=== PATIENT | male | born 1990 | race Caucasian/White ===

== ENCOUNTER 2020-03-14 10:28 | Observation (INO) ==
[2020-03-14 11:07] LABS: Basophils # (auto) 0.03 K/uL (0-0.2); Basophils % (auto) 0.2 %; Eosinophils # (auto) 0.16 K/uL (0-0.5); Eosinophils % (auto) 1.1 %; Hematocrit (blood only) 45.2 % (42-52); Hemoglobin 15.5 g/dL (14.0-18.0); Immature Granulocytes # (auto) 0.03 K/uL (0.00-0.02); Immature Granulocytes % (auto) 0.2 %; Lymphocytes # (auto) 0.99 K/uL (1.2-3.4); Lymphocytes % (auto) 6.5 %; Mean Corpuscular Hemoglobin 29.2 pg (25-34); Mean Corpuscular Hgb Conc 34.3 g/dL (32-36); Mean Corpuscular Volume 85.3 fL (80-100); Mean Platelet Volume 11.5 fL (7.4-10.4); Monocytes # (auto) 0.79 K/uL (0.11-0.59); Monocytes % (auto) 5.2 %; Neutrophils # (auto) 13.12 K/uL (1.4-6.5); Neutrophils % (auto) 86.8 %; Platelet Count 187 K/uL (130-400); RDW Coefficient of Variation 12.8 % (11.5-14.5); RDW Standard Deviation 39.6 fL (36.4-46.3); White Blood Count 15.12 K/uL (4.8-10.8)
[2020-03-14] MEDS ORDERED: MoRPHine SULFATE 4 MG/ML 1 ML CARP\\VIAL IV STA ×2 (11:17→12:31)
[2020-03-14] MEDS ORDERED: ONDANSETRON INJ 2 MG/ML 2 ML VIAL IV STA (11:17)
--- NOTE | 2020-03-14 11:22 | Emergency Department Note ---
History of Present Illness General Chief complaint: Abdominal Pain Stated complaint: ABD PAIN/VOMITING Time Seen by Provider: 03/14/20 11:01 History of Present Illness Maximum Pain Intensity: 8 This patient is a pleasant 29-year-old male who presents ambulatory to the emergency department for evaluation of a sharp, stabbing, constant abdominal pain in the lower abdomen that started at approximately 4 AM this morning. The patient also reports nausea and had one episode of bilious vomiting this morning. Bowel movements have been unchanged. His last bowel movement was "earlier this week and normal." He denies any fever. No hematuria reported. Trying to urinate this morning made the pain worse. He has not taken anything [id number] for his symptoms. Home Medications Medication Instructions Recorded Confirmed Type buprenorphine-naloxone 2 tab SUBLINGUAL BID 03/14/20 03/14/20 History Allergies Allergy/AdvReac Type Severity Reaction Status Date / Time No Known Allergies Allergy Verified 03/14/20 12:23 Past Med/Surg History Medical History (Updated 03/14/20 @ 19:43 by Apryl Rankin PA-C) No significant past medical history Social History Smoking Status: Never smoker Hx Alcohol Use: No Hx Substance Use: Yes Substance Use Type Other:: Patient is on suboxone Preferred Language: Yi Communication Ability: Effective Station Examiner Required: No Beliefs That Will Affect Care: None Current Living Situation: Significant Other Other Information That Helps Us Care for You: No Feels Safe at Home: Yes Safety Concerns: Feels Safe At This Time Assistive Devices: None Review of Systems A total of 10 systems reviewed and were otherwise negative Physical Exam Vital Signs Vital Signs - 24 hr 03/14/20 10:44 03/14/20 10:59 03/14/20 12:28 Temperature 37.8 C H 36.7 C Temperature Source Temporal Artery Scan Oral Pulse Rate 88 Pulse Rate [Left Finger] 88 Respiratory Rate 16 20 Respiratory Effort / Characteristics Non-Labored Respiratory Depth Normal Blood Pressure 129/83 Blood Pressure [Left Arm] 136/78 Blood Pressure Mean 98 Blood Pressure Mean [Left Arm] 97 Pulse Oximetry 97 98 Sepsis Recent Fever Within 48 Hours No Sepsis New/Unexplained Change in Mental Status N/A Sepsis Action Taken by Nursing No Action Required 03/14/20 14:45 03/14/20 16:16 Temperature Temperature Source Pulse Rate Pulse Rate [Left Finger] 77 76 Respiratory Rate 18 18 Respiratory Effort / Characteristics Respiratory Depth Blood Pressure Blood Pressure [Left Arm] 134/76 115/76 Blood Pressure Mean Blood Pressure Mean [Left Arm] 95 89 Pulse Oximetry 98 98 Sepsis Recent Fever Within 48 Hours Sepsis New/Unexplained Change in Mental Status Sepsis Action Taken by Nursing Constitutional WD/WN, vitals as above Eyes EOM intact bilaterally ENMT external ear and nose normal, oropharynx normal Neck trachea midline Respiratory normal respiratory effort, lungs clear to auscultation Cardiovascular RRR, no murmur, no edema Gastrointestinal (Abdomen) Tenderness palpation in the right lower quadrant without any guarding or rebound tenderness. Bowel sounds present, but hypoactive. Musculoskeletal no cyanosis or clubbing, extremities motor strength 5/5 Skin no rashes, warm and dry Neurologic Alert and oriented x3. No focal motor deficits. Psychiatric Acting appropriately Course Course Patient was seen and examined Vital signs including blood pressure were reviewed medications list was verified with patient Labs were obtained, and a saline lock was established The patient was medicated. Imaging was ordered and reviewed. Upon reevaluation, the patient was still in pain. He was ordered an additional round of morphine. We discussed his results. He voiced understanding. The case was discussed with my supervising physician in addition to general surgery. General surgery agreed to evaluate the patient for likely surgical management. He was ordered 1 dose of antibiotics IV. The patient remained stable in the emergency department. Consultations Consultation #1: Munira Diana PA-C Administered Medications Lactated Ringer's (Lr) 1,000 mls @ 80 mls/hr IV .[id number] [facility] Stop: 04/13/20 18:53 Last Admin: 03/14/20 18:54 Dose: 80 mls/hr Documented by: [id number] Acetaminophen (Ofirmev) 1,000 mg in 100 mls @ 400 mls/hr IV Q8H [facility] Stop: 03/17/20 19:59 Last Admin: 03/14/20 20:24 Dose: 400 mls/hr Documented by: [id number] Oxycodone HCl (Oxycodone Hcl Ir 5 Mg Tab (Immediate Release)) 5 mg PO Q4H PRN PRN Reason: MODERATE Pain (4,5,6) & Pre PT Stop: 03/28/20 18:53 Last Admin: 03/14/20 20:26 Dose: 5 mg Documented by: [id number] Discontinued Medications Bupivacaine HCl/Epinephrine Bitart (Bupivacaine/Epinephrine 0.5% Mpf 1:200,000 30 Ml Vial) Confirm Administered Dose 30 ml .ROUTE .STK-MED ONE Stop: 03/14/20 15:48 Last Admin: 03/14/20 17:30 Dose: 30 ml Documented by: [id number] Sodium Chloride (Nss 1000ml) 1,000 mls @ 999 mls/hr IV .Q1H1M ONE Stop: 03/14/20 12:39 Last Infusion: 03/14/20 12:00 Dose: 0 mls/hr Documented by: [id number] Admin: 03/14/20 11:00 Dose: 999 mls/hr Documented by: [id number] Cefoxitin Sodium (Mefoxin) 2,000 mg in 60 mls @ 100 mls/hr IV NOW STA Stop: 03/14/20 15:34 Last Admin: 03/14/20 15:15 Dose: 100 mls/hr Documented by: [id number] Ioversol (Ioversol 100ml) 93 ml IV ONCE ONE Stop: 03/14/20 14:12 Last Admin: 03/14/20 14:12 Dose: 93 ml Documented by: [id number] Morphine Sulfate (Morphine Sulfate 4 Mg/Ml 1 Ml Carp\\Vial) 4 mg IV NOW STA Stop: 03/14/20 11:18 Last Admin: 03/14/20 11:35 Dose: 4 mg Documented by: [id number] Morphine Sulfate (Morphine Sulfate 4 Mg/Ml 1 Ml Carp\\Vial) 4 mg IV NOW STA Stop: 03/14/20 12:32 Last Admin: 03/14/20 15:14 Dose: Not Given Documented by: [id number] Morphine Sulfate (Morphine Sulfate 4 Mg/Ml 1 Ml Carp\\Vial) Confirm Administered Dose 4 mg .ROUTE .STK-MED ONE Stop: 03/14/20 15:12 Last Admin: 03/14/20 15:12 Dose: Not Given Documented by: [id number] Ondansetron HCl (Ondansetron Inj 2 Mg/Ml 2 Ml Vial) 4 mg IV NOW STA Stop: 03/14/20 11:18 Last Admin: 03/14/20 11:35 Dose: 4 mg Documented by: [id number] Medical Decision Making Medical Records Attestation: I reviewed the patient's medical records. Home Medications Current Medication List: was personally reviewed by me Laboratory Data Attestation: I reviewed the patient's lab results. Result diagrams: 03/14/20 10:55 03/14/20 10:55 Lab Results 03/14/20 03/14/20 03/14/20 Range/Units 10:55 10:55 12:09 WBC 15.12 H (4.8-10.8) K/uL RBC 5.30 (4.7-6.1) M/uL Hgb 15.5 (14.0-18.0) g/dL Hct 45.2 (42-52) % MCV 85.3 (80-100) fL MCH 29.2 (25-34) pg MCHC 34.3 (32-36) g/dL RDW Std Deviation 39.6 (36.4-46.3) fL RDW Coeff of Kay 12.8 (11.5-14.5) % Plt Count 187 (130-400) K/uL MPV 11.5 H (7.4-10.4) fL Immature Gran % (Auto) 0.2 % Neut % (Auto) 86.8 % Lymph % (Auto) 6.5 % [place] % (Auto) 5.2 % Eos % (Auto) 1.1 % Baso % (Auto) 0.2 % Neut # (Auto) 13.12 H (1.4-6.5) K/uL Lymph # (Auto) 0.99 L (1.2-3.4) K/uL [place] # (Auto) 0.79 H (0.11-0.59) K/uL Eos # (Auto) 0.16 (0-0.5) K/uL Baso # (Auto) 0.03 (0-0.2) K/uL Immature Gran # (Auto) 0.03 H (0.00-0.02) K/uL Sodium 140 (136-145) mmol/L Potassium 4.4 (3.5-5.1) mmol/L Chloride 106 (98-107) mmol/L Carbon Dioxide 30 (21-32) mmol/L Anion Gap 3.0 (3-11) BUN 9 (7-18) mg/dl Creatinine 0.87 (0.6-1.4) mg/dl Est Cr Clr Drug Dosing 112.9 ml/min Est GFR ( Amer) 135.2 Est GFR (Non-Af Amer) 116.6 BUN/Creatinine Ratio 10.8 (10-20) Glucose 98 (70-99) mg/dl Calcium 9.6 (8.5-10.1) mg/dl Total Bilirubin 0.6 (0.2-1) mg/dl AST 11 L (15-37) U/L ALT 25 (12-78) U/L Alkaline Phosphatase 78 (45-117) U/L Total Protein 6.9 (6.4-8.2) gm/dl Albumin 4.4 (3.4-5.0) gm/dl Globulin 2.5 (2.5-4.0) gm/dl Albumin/Globulin Ratio 1.8 (0.9-2) Urine Color Yellow Urine Appearance Clear (Clear) Urine pH 8.5 H (4.5-7.5) Ur Specific [place] 1.012 (1.000-1.030) Urine Protein Negative (Negative) Urine Glucose (UA) Negative (Negative) Urine Ketones Negative (Negative) Urine Blood Negative (Negative) Urine Nitrite Negative (Negative) Urine Bilirubin Negative (Negative) Urine Urobilinogen Negative (Negative) Ur Leukocyte Esterase Negative (Negative) COVID-19 Eval Order SARS-CoV-2, RNA, NAAT (NEGATIVE) 03/14/20 03/14/20 03/14/20 Range/Units 15:15 15:41 15:41 WBC (4.8-10.8) K/uL RBC (4.7-6.1) M/uL Hgb (14.0-18.0) g/dL Hct (42-52) % MCV (80-100) fL MCH (25-34) pg MCHC (32-36) g/dL RDW Std Deviation (36.4-46.3) fL RDW Coeff of Kay (11.5-14.5) % Plt Count (130-400) K/uL MPV (7.4-10.4) fL Immature Gran % (Auto) % Neut % (Auto) % Lymph % (Auto) % [place] % (Auto) % Eos % (Auto) % Baso % (Auto) % Neut # (Auto) (1.4-6.5) K/uL Lymph # (Auto) (1.2-3.4) K/uL [place] # (Auto) (0.11-0.59) K/uL Eos # (Auto) (0-0.5) K/uL Baso # (Auto) (0-0.2) K/uL Immature Gran # (Auto) (0.00-0.02) K/uL Sodium (136-145) mmol/L Potassium (3.5-5.1) mmol/L Chloride (98-107) mmol/L Carbon Dioxide (21-32) mmol/L Anion Gap (3-11) BUN (7-18) mg/dl Creatinine (0.6-1.4) mg/dl Est Cr Clr Drug Dosing ml/min Est GFR ( Amer) Est GFR (Non-Af Amer) BUN/Creatinine Ratio (10-20) Glucose (70-99) mg/dl Calcium (8.5-10.1) mg/dl Total Bilirubin (0.2-1) mg/dl AST (15-37) U/L ALT (12-78) U/L Alkaline Phosphatase (45-117) U/L Total Protein (6.4-8.2) gm/dl Albumin (3.4-5.0) gm/dl Globulin (2.5-4.0) gm/dl Albumin/Globulin Ratio (0.9-2) Urine Color Urine Appearance (Clear) Urine pH (4.5-7.5) Ur Specific [place] (1.000-1.030) Urine Protein (Negative) Urine Glucose (UA) (Negative) Urine Ketones (Negative) Urine Blood (Negative) Urine Nitrite (Negative) Urine Bilirubin (Negative) Urine Urobilinogen (Negative) Ur Leukocyte Esterase (Negative) COVID-19 Eval Order Cancelled Covid19 [facility]Now [facility] SARS-CoV-2, RNA, NAAT NEGATIVE (NEGATIVE) Imaging Data Attestation: I personally reviewed and interpreted this imaging study as follows: Radiologist's Impression: CT abdomen and pelvis with IV and oral contrast IMPRESSION: 1. Findings consistent with early acute appendicitis. No free air or abscess. 2. 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 ACT 112: Negative or not required by law. Electronically signed by: Dustin Barrera M.D. 03/14/2020 2:23 PM Dictated: 03/14/20 [id number] Transcribed: 03/14/201418 [facility] Narrative Differential diagnosis: Ureteral stone, pyelonephritis, appendicitis, gastroe nteritis, musculoskeletal pain, bowel obstruction, among others were considered This patient is a pleasant 29-year-old male who presents emergency department complaining of right lower abdominal pain that started acutely last evening. On exam, he was nontoxic in appearance. He was not febrile. He was tender in the right lower quadrant. A work-up was performed. There is leukocytosis noted. I maging was performed and consistent with acute appendicitis. General surgery was consulted. They recommended IV antibiotics and likely surgical intervention. This was discussed with patient. He was in agreement. He remained stable in the emergency department. Impression & Plan Acute appendicitis Discharge Plan Visit Data Chief Complaint: Abdominal Pain Stated Complaint: ABD PAIN/VOMITING ED Provider: Asaf Reece ED Midlevel Provider: Apryl Rankin Discharge Problem: Acute appendicitis Patient Disposition: Admitted As Inpatient Discharge Instructions Interventions: ED Discharge Assessment Last Done: 03/14/20 16:18
[2020-03-14 11:28] LABS: Albumin Level 4.4 gm/dl (3.4-5.0); BUN Creatinine Ratio 10.8 (10-20); Calcium 9.6 mg/dl (8.5-10.1); Creatinine Clr Calc Pharmacy 112.9 ml/min; Est GFR (African American) 135.2; Est GFR (Non-African American) 116.6; Potassium 4.4 mmol/L (3.5-5.1)
[2020-03-14 11:31] LABS: Albumin Globulin Ratio 1.8 (0.9-2); Bilirubin,Total 0.6 mg/dl (0.2-1); Globulin 2.5 gm/dl (2.5-4.0); Total Protein 6.9 gm/dl (6.4-8.2)
[2020-03-14] MEDS ORDERED: SODIUM CHLORIDE 0.9% 1000ML 1,000 ML IV ONE (11:39)
[2020-03-14 12:16] LABS: Appearance Urine Clear (Clear); Bilirubin Urine Negative (Negative); Blood Urine Negative (Negative); Color Urine Yellow; Glucose Urine UA Negative (Negative); Ketones Urine Negative (Negative); Leukocyte Esterase Urine Negative (Negative); Nitrite Urine Negative (Negative); Protein Urine Negative (Negative); Specific Gravity Urine 1.012 (1.000-1.030); Urobilinogen Urine Negative (Negative); pH Urine 8.5 (4.5-7.5)
[2020-03-14] MEDS ORDERED: IOVERSOL 100ml IV ONE (14:11)
--- NOTE | 2020-03-14 14:25 | CT Scan Report ---
CT OF THE ABDOMEN AND PELVIS WITH CONTRAST CLINICAL HISTORY: Right lower abdominal pain. COMPARISON STUDY: None. TECHNIQUE: Following IV administration of 93 mL of Optiray-320, axial images of the abdomen and pelvi s were obtained from the lung bases to the proximal femurs. Images were reviewed in the axial, sagitt al, and coronal planes. IV contrast was administered without complication. Automated exposure contro l was utilized for the study. A dose lowering technique was utilized adhering to the principles of A BARBARA. Oral contrast was administered. CT DOSE: 381.24 mGy.cm FINDINGS: Lung bases are unremarkable. No pneumatosis, free air or portal venous gas is present. The liver, spleen, adrenal glands, left kidney and pancreas are unremarkable. Malrotation of the right ki dney is noted. This is congenital. There is no biliary or pancreatic ductal dilatation. There is no e vidence for a bowel obstruction. The appendix is mildly dilated and fluid filled with wall thickening . The appendix measures 9 mm in caliber. There is mild periappendiceal infiltration. No free air or a bscess is present. No acute fracture or suspicious lesion is identified within visualized skeletal st ructures. Major vasculature is patent. IMPRESSION: 1. Findings consistent with early acute appendicitis. No free air or abscess. 2. 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 ACT 112: Negative or not required by law. Electronically signed by: Dustin Barrera M.D. 03/14/2020 2:23 PM
[2020-03-14] MEDS ORDERED: cefOXitin 2,000 MG/60 ML BAG IV STA (14:59)
[2020-03-14] MEDS ORDERED: MoRPHine SULFATE 4 MG/ML 1 ML CARP\\VIAL ONE (15:11)
--- NOTE | 2020-03-14 15:33 | History & Physical Report ---
Date of Service March 14, 2020 Assessment & Plan (1) Acute appendicitis: This is a 29y M with a PMH of opioid abuse on suboxone who presents to the [facility] ED on 03/14/20 with complaints of abdominal pain, particularly in the right lower quadrant. Pain is associated with nausea/vomiting. Workup in the ED revealed a WBC of [address] a/p performed showing findings consistent with acute appendicitis, no perforation or abscess noted. Patient had a low grade temp of 37.8C in the ER, other vital signs are stable. On examination patient is acutely tender to palpation in the RLQ. Based on imaging, labs, and examination we will proceed to take patient to the OR for a laparoscopic appendectomy. Keep patient NPO with IVF and pre-op abx to be given. Covid testing has been ordered. Dr. Jeffers will be by to obtain surgical consent. as above. discussed options/risks ( bleeding/infection/injury to another organ, dvt/pe/mi/cva etc....). questions answered. will proceed with lap appy karen. pt agreeable. History of Present Illness Primary Care Provider: Ritesh Mandujano This is a 29y M with a PMH of opioid abuse on suboxone who presents to the [facility] ED on 03/14/20 with complaints of abdominal pain. Patient reports his abdominal pain started early this AM around 4am. The pains felt sharp, rating it a 10/10 in severity, and located in the RLQ. Patient thought maybe it was gas pains to he took some gas-ex and tried to go back to sleep. He woke up around around 7am with ongoing pain that was made worse when he tried to walk. He did develop nausea along with bilious emesis prompting him to come into the ER for further evaluation. In the ER patient's WBC [address] a/p was obtained that revealed findings consistent with early acute appendicitis. Patient denies any fevers/chills, cp/sob, diarrhea or constipation. He has no prior abdominal surgical history. Last meal was yesterday evening. Allergies Allergy/AdvReac Type Severity Reaction Status Date / Time No Known Allergies Allergy Verified 03/14/20 12:23 Home Medications Medication Instructions Recorded Confirmed Type buprenorphine-naloxone 2 tab SUBLINGUAL BID 03/14/20 03/14/20 History Past Med/Surg History Medical History (Updated 03/14/20 @ 15:40 by Munira Calixto PA-C) No significant past medical history Social History Smoking Status: Never smoker Feels Safe at Home: Yes Review of Systems Constitutional: no fever and no chills Respiratory: no dyspnea Cardiovascular: no chest pain Gastrointestinal: + abdominal pain (rlq), + nausea and + vomiting; no change in bowel habits Physical Exam Physical Exam: awake/alert Constitutional: well developed and well nourished Respiratory: normal respiratory effort Gastrointestinal (Abdomen): Inspection/Auscultation: + Kehr's sign positive Percussion/Palpation: + abdomen tender (ttp rlq), + guarding (guarding when p alpated in rlq) and abdomen soft Results & Data Results & Data ([facility]) Vital Signs (Past 12 Hours) Vital Signs Temp Pulse Pulse Resp BP BP Pulse Ox 03/14/20 14:45 77 18 134/76 98 03/14/20 12:28 88 20 136/78 98 03/14/20 10:59 36.7 C 03/14/20 10:44 37.8 C H 88 16 129/83 97 T OF THE ABDOMEN AND PELVIS WITH CONTRAST CLINICAL HISTORY: Right lower abdominal pain. COMPARISON STUDY: None. TECHNIQUE: Following IV administration of 93 mL of Optiray-320, axial images of the abdomen and pelvis were obtained from the lung bases to the proximal femurs. Images were reviewed in the axial, sagittal, and coronal planes. IV contrast was administered without complication. Automated exposure control was utilized for the study. A dose lowering technique was utilized adhering to the principles of ALARA. Oral contrast was administered. CT DOSE: 381.24 mGy.cm FINDINGS: Lung bases are unremarkable. No pneumatosis, free air or portal venous gas is present. The liver, spleen, adrenal glands, left kidney and pancreas are unremarkable. Malrotation of the right kidney is noted. This is congenital. There is no biliary or pancreatic ductal dilatation. There is no evidence for a bowel obstruction. The appendix is mildly dilated and fluid filled with wall t hickening. The appendix measures 9 mm in caliber. There is mild periappendiceal infiltration. No free air or abscess is present. No acute fracture or suspicious lesion is identified within visualized skeletal structures. Major vasculature is patent. IMPRESSION: 1. Findings consistent with early acute appendicitis. No free air or abscess. 2. 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 ACT 112: Negative or not required by law. Electronically signed by: Dustin Barrera M.D. 03/14/2020 2:23 PM PG Care Time/CCT Total # of Minutes Spent Total Time Spent with Patient: Total time spent is greater than 50% in coordination of care (as documented) at patient's floor/unit and/or counseling patient: Coding Level of Care Code 87358 Initial Inpt Care Lvl 1 Diagnoses Acute appendicitis K35.80
[2020-03-14] MEDS ORDERED: BUPIVACAINE/EPINEPHRINE 0.5% MPF 1:200,000 30 ML VIAL ONE (15:47)
[2020-03-14] MEDS ORDERED: ONDANSETRON INJ 2 MG/ML 2 ML VIAL ONE (15:54)
[2020-03-14] MEDS ORDERED: fentaNYL citrate 100 MCG/2 ML VIAL ONE ×2 (15:54→17:00)
[2020-03-14] MEDS ORDERED: MIDAZOLAM HCL 1 MG/ML 2ML VIAL ONE (15:54)
[2020-03-14] MEDS ORDERED: DEXAMETHASONE SOD INJ 4 MG/ML VIAL ONE (15:54)
[2020-03-14] MEDS ORDERED: LIDOCAINE HCL 2% 2 ML VIAL/AMP(20MG/ML) INFIL ONE (15:54)
[2020-03-14] MEDS ORDERED: PROPOFOL IV EMULSION 10 MG/ML 20 ML VIAL IV ONE (15:54)
[2020-03-14] MEDS ORDERED: KETOROLAC 30 MG/ML VIAL ONE (15:54)
--- NOTE | 2020-03-14 16:34 | Anesthesiology Consultation ---
Date of Service March 14, 2020 Assessment & Plan (1) Encounter for pre-operative examination: Chart Review Chart Review: Acceptable Risk for Surgery and Patient NOT seen in Pre Admission Testing Consults Requested none History Surgery Operation Date: 03/14/20 15:50 Proposed Procedures p Laparoscopic Appendectomy - Ko Jeffers DO Height/Weight Height: 5 ft 3 in Weight: 73.9 kg Allergies Allergy/AdvReac Type Severity Reaction Status Date / Time No Known Allergies Allergy Verified 03/14/20 12:23 Medications Home Medications Medication Instructions Recorded Confirmed Last Taken buprenorphine-naloxone 2 tab SUBLINGUAL BID 03/14/20 03/14/20 Unknown NPO Date Last Intake of Fluids: 03/14/20 Time Last Intake of Fluids: 12:45 Date Last Intake of Solids: 03/13/20 Time Last Intake of Solids: 21:00 Past Medical History Medical History (Updated 03/14/20 @ 16:34 by Zari Patel MD) No significant past medical history Social History Smoking Status: Never smoker Physical Exam Vital Signs Last Vital Signs Temp 36.7 C 03/14/20 10:59 Pulse 76 03/14/20 16:16 Resp 18 03/14/20 16:16 BP 115/76 03/14/20 16:16 Pulse Ox 98 03/14/20 16:16 Testing Laboratory Results 03/14/20 10:55 03/14/20 10:55 Urine Color Yellow 03/14/20 12:09 Urine Appearance Clear (Clear) 03/14/20 12:09 Urine pH 8.5 (4.5-7.5) H 03/14/20 12:09 Ur Specific [place] 1.012 (1.000-1.030) 03/14/20 12:09 Urine Protein Negative (Negative) 03/14/20 12:09 Urine Glucose (UA) Negative (Negative) 03/14/20 12:09 Urine Ketones Negative (Negative) 03/14/20 12:09 Urine Nitrite Negative (Negative) 03/14/20 12:09 Ur Leukocyte Esterase Negative (Negative) 03/14/20 12:09
[2020-03-14] MEDS ORDERED: HYDROmorphone INJ 1 MG/ML SYRINGE IV PRN (17:05)
[2020-03-14] MEDS ORDERED: ATROPINE SULFATE 0.1 MG/ML 10ML SYR IV PRN (17:05)
[2020-03-14] MEDS ORDERED: PROMETHAZINE HCL 12.5 MG in SODIUM CHLORIDE 0.9% 50 ML IV PRN (17:05)
[2020-03-14] MEDS ORDERED: ONDANSETRON INJ 2 MG/ML 2 ML VIAL IV PRN ×2 (17:05→18:54)
[2020-03-14] MEDS ORDERED: fentaNYL citrate 100 MCG/2 ML VIAL IV PRN (17:05)
[2020-03-14] MEDS ORDERED: ePHEDrine sulfate 50 MG/ML AMP IV PRN (17:05)
[2020-03-14] MEDS ORDERED: HYDROmorphone INJ 2 MG/ML SYR/VIAL ONE (17:07)
[2020-03-14] MEDS ORDERED: NEOSTIGMINE METHYLSULFATE 5 MG/5 ML SYR ONE (17:16)
[2020-03-14] MEDS ORDERED: GLYCOPYRROLATE 0.2 MG/ML VIAL ONE (17:16)
--- NOTE | 2020-03-14 17:33 | Operative Report ---
PG Post Operative Report Pre & Post Diagnosis Operation Date: 03/14/20 15:50 Pre-Op Diagnosis: Acute Appendicitis Post-Op Diagnosis: Acute Appendicitis I identified the patient and participated in the time-out.: Yes Procedure Operation Date: 03/14/20 15:50 Actual Procedures p Laparoscopic Appendectomy - Ko Jeffers DO Surgeon Ko Jeffers DO Order Takers Supervisor tom Calixto Estimated Blood Loss 10 Findings Consistent with Post-Op Diagnosis Specimens appendix Description of Procedure After informed consent was obtained the patient was taken to the operating room and placed in supine position. After successful intubation a Paniagua catheter was placed and the left arm was tucked. A P[place] catheter was inserted sterilely. I began by making a periumbilical incision with an 11 blade scalpel and carried this down through the soft tissue using electrocautery. The anterior rectus fascia was opened using electrocautery and 2 #0 Vicryl stay sutures were placed. The peritoneum was elevated using hemostats and incised under direct vision using a Metzenbaum scissor. A finger sweep was performed. A 12 mm Heck troc ar was placed and the abdomen was insufflated to 18 mmHg. A laparoscope was inserted and the abdomen was examined in 360. A suprapubic 5 mm port and a left lower quadrant 12 mm port were placed under direct vision. The patient was air planed to the left as well as placed in a slight Trendelenburg position. We began by looking in the right lower quadrant. We were able to readily identify the appendix and it was grossly inflamed. It had not perforated. There is a small amount of purulent fluid in the right lower quadrant and the pelvis. We immediately irrigated and suctioned this out. I was able to use primarily blunt dissection to pull the appendix away from the right lower quadrant sidewall. I was then able to use a JANETTE brown cartridge stapler to transect both the mesentery of the appendix as well as the appendix itself at its base with the cecum. It was then placed into an Endo Catch bag and removed from the camera port site. There was a small bleeding point on the staple line which I used a clip patient support partner to control. We thoroughly irrigated the right lower quadrant as well as the pelvis. There was adequate hemostasis. I ran the small bowel backwards from the terminal ileum for about 6 feet all of which was normal. All the peritoneal surfaces were normal. Small/ large bowel, liver, stomach etc. all appeared grossly normal. We did a final irrigation and then removed all the trochars and desufflated the abdomen. The fascia of the camera port as well as the left lower quadrant were closed using 0 Vicryl in [id number] fashion. Wounds were all irrigated and closed using 4-0 Monocryl. Marcaine was injected around them for postoperative analgesia and skin glue used as a dressing. The patient was awakened extubated and transferred to recovery in stable condition. My physician's it assistant was present through the entire case. She assisted with prepping the patient and helped with exposure for port placement, helped run the camera and helped with fascial/wound closure at the end of the procedure as well as dressing placement. I attest to the content of the Intraoperative Record and any orders documented therein. Any exceptions are noted below. I attest to the content of the Intraoperative Record and any orders documented therein. Any exceptions are noted below.
[2020-03-14] MEDS: LACTATED RINGER'S 1,000 ML IV SCH (18:54)
[2020-03-14] MEDS ORDERED: oxyCODONE HCL IR 5 MG TAB (IMMEDIATE RELEASE) PO PRN (18:54)
--- NOTE | 2020-03-14 18:59 | Anesthesiology Progress Note ---
Date of Service March 14, 2020 Anesthesia Post Procedure Vital Signs Vital Signs: Temp Pulse Pulse Pulse Resp BP BP 03/14/20 18:30 37.5 C 85 18 137/88 03/14/20 18:20 37.4 C 94 H 15 147/96 H 03/14/20 18:10 85 16 140/97 03/14/20 18:00 37.2 C 76 15 151/99 H 03/14/20 17:51 37.2 C 91 H 16 147/91 H 03/14/20 16:16 76 18 115/76 03/14/20 14:45 77 18 134/76 03/14/20 12:28 88 20 136/78 03/14/20 10:59 36.7 C 03/14/20 10:44 37.8 C H 88 16 129/83 Pulse Ox 03/14/20 18:30 93 03/14/20 18:20 93 03/14/20 18:10 94 03/14/20 18:00 100 03/14/20 17:51 100 03/14/20 16:16 98 03/14/20 14:45 98 03/14/20 12:28 98 03/14/20 10:59 03/14/20 10:44 97 Pain Intensity Head: Pain Intensity: 4 Transfer of Care Handoff Completed per policy Notes Mental Status: alert / awake / arousable and participated in evaluation Patient Amnestic to Procedure: Yes Nausea / Vomiting: adequately controlled Pain: adequately controlled Airway Patency, RR, SpO2: stable & adequate BP & HR: stable & adequate Hydration State: stable & adequate Anesthetic Complications: no major complications apparent and Pt Satisfied with anesthetic care
[2020-03-14] MEDS: ACETAMINOPHEN 1,000 MG/100 ML VIAL IV SCH (20:24)
[2020-03-14] MEDS: IBUPROFEN 800 MG TAB PO SCH (23:36)
[2020-03-15] MEDS: ACETAMINOPHEN 1,000 MG/100 ML VIAL IV SCH (04:48)
[2020-03-15 06:03] LABS: Basophils # (auto) 0.01 K/uL (0-0.2); Basophils % (auto) 0.1 %; Hematocrit (blood only) 40.8 % (42-52); Hemoglobin 13.9 g/dL (14.0-18.0); Immature Granulocytes # (auto) 0.02 K/uL (0.00-0.02); Immature Granulocytes % (auto) 0.2 %; Lymphocytes # (auto) 0.85 K/uL (1.2-3.4); Lymphocytes % (auto) 6.4 %; Mean Corpuscular Hemoglobin 28.9 pg (25-34); Mean Corpuscular Hgb Conc 34.1 g/dL (32-36); Mean Corpuscular Volume 84.8 fL (80-100); Mean Platelet Volume 11.5 fL (7.4-10.4); Monocytes # (auto) 0.53 K/uL (0.11-0.59); Neutrophils # (auto) 11.78 K/uL (1.4-6.5); Neutrophils % (auto) 89.3 %; Platelet Count 201 K/uL (130-400); RDW Coefficient of Variation 12.8 % (11.5-14.5); RDW Standard Deviation 39.3 fL (36.4-46.3); Red Blood Count 4.81 M/uL (4.7-6.1); White Blood Count 13.19 K/uL (4.8-10.8)
[2020-03-15] MEDS: LACTATED RINGER'S 1,000 ML IV SCH (07:34)
[2020-03-15] MEDS: IBUPROFEN 800 MG TAB PO SCH (07:34)
--- NOTE | 2020-03-15 08:38 | Surgery Progress Note ---
Date of Service March 15, 2020 Assessment & Plan (1) Acute appendicitis: pod 1 doing well ok for d/c instructions given Admission and Anticipated Discharge Date Admission Date: March 14, 2020 Subjective pt seen. feeling well. no new complaints. dimas diet. Physical Exam Physical Exam: alert. nad abd: soft. expected tenderness. wounds look good. Results & Data ([facility]) Vital Signs (Past 12 Hours) Vital Signs Temp Pulse Pulse Resp BP Pulse Ox 03/15/20 07:32 36.8 C 59 L 20 115/73 96 03/15/20 02:29 36.8 C 75 20 117/70 96 03/14/20 21:30 36.9 C 87 20 124/74 93 PG Care Time/CCT Total # of Minutes Spent Total Time Spent with Patient: Total time spent is greater than 50% in coordination of care (as documented) at patient's floor/unit and/or counseling patient: Coding Level of Care Code None Diagnoses Acute appendicitis K35.80
--- NOTE | 2020-03-16 14:03 | Discharge Summary ---
Date of Service March 16, 2020 Admission HPI Per Admitting Provider This is a 29y M with a PMH of opioid abuse on suboxone who presents to the [facility] ED on 03/14/20 with complaints of abdominal pain. Patient reports his abdominal pain started early this AM around 4am. The pains felt sharp, rating it a 10/10 in severity, and located in the RLQ. Patient thought maybe it was gas pains to he took some gas-ex and tried to go back to sleep. He woke up around around 7am with ongoing pain that was made worse when he tried to walk. He did develop nausea along with bilious emesis prompting him to come into the ER for further evaluation. In the ER patient's WBC [address] a/p was obtained that revealed findings consistent with early acute appendicitis. Patient denies any fevers/chills, cp/sob, diarrhea or constipation. He has no prior abdominal surgical history. Last meal was yesterday evening. Principal Diagnosis Acute appendicitis Discharge Exam Gastrointestinal (Abdomen) Inspection/Auscultation: + abdominal surgical incision (clean, dry) Percussion/Palpation: abdomen soft Discharge Data Allergies Allergy/AdvReac Type Severity Reaction Status Date / Time No Known Allergies Allergy Verified 03/14/20 12:23 Procedures Performed Operation Date: 03/14/20 15:50 Actual Procedures p Laparoscopic Appendectomy - Ko Jeffers DO Ordered Studies 03/14/20 11:17 CT abd pelvis oral and IV con Stat Hospital Course (1) Acute appendicitis: 29 y/o male presented to the ER with abdominal pain. White count was 15,[address] was consistent with acute appendicitis. He was taken to the operating room for laparoscopic appendectomy that evening and transferred to the surgical floor for overnight observation. In the morning he was able to advance diet and tolerate oral analgesics. He was stable for discharge home. Total Time Total Time Spent Total Time Spent (In Minutes): 10 Discharge Plan Discharge Items Patient Disposition: Home - Self-Care Reason For Visit: S/P LAP APPY Discharge Diagnosis: appendicitis Activity: As commented below Lifting: No more than 10 pounds Bathing Comment: ok to shower Driving/Machine Use: Resume 3 days after discharge Non-emergency contact: Surgeon Call non-emergency contact if: you have any medication questions, your pain is not controlled, you have a fever, your temperature is above 101.5 and your wound has increased redness Follow-up/Referrals: Ko Jeffers, [Surgeon] - 03/31/20 10:00 am (Call the office to make an appt within 2 weeks LEFT A MESSAGE WITH [facility] FOR F/U APPT) Ritesh Mandujano [Primary Care Provider] - Diet: Regular Addtl Attending Provider Instructions: Pending Studies at Discharge: No Stand-Alone Forms: My [facility] MEDSEEK, Smoking Cessation Medications and DC Order Prescriptions: New hydrocodone-acetaminophen [[place]] 5-325 mg tablet 1 - 2 tab PO Q4H PRN (Reason: pain, initial therapy, max 8 daily) Qty: 5 RF: 0 Continued buprenorphine-naloxone 8-2 mg tablet, sublingual 2 tab SUBLINGUAL BID RF: 0 Discharge Orders: Discharge Order (Routine); Ordered 03/15/20 Ordered By: Juanpablo Jara Admission Data Admit Date/Time: 03/14/20 17:42 Attending Provider: Ko Jeffers Admit Provider: Ko Jeffers Primary Care Provider: Ritesh Mandujano Other Interventions: Discharge Summary Assessment (RN) Last Done: 03/15/20 09:24 Coding Level of Care Code D/C Day Management <30 mins Diagnoses Acute appendicitis K35.80
== END 2020-03-15 09:52 | disposition home or self-care (01) ==
LOC: ED 10:28 → 3N 10:28